=== PATIENT | female | born 1940 | race Caucasian/White ===

== ENCOUNTER 2022-05-14 03:14 | Emergency (ER) | payer MEDICARE ==
[2022-05-14] MEDS ORDERED: LIDOCAINE W/EPINEPHRINE 1% 20ML VIAL SC ONE (06:10)
[2022-05-14] MEDS ORDERED: BOOSTRIX/ADACEL VACCINE (DIPHTH/PERTUSS/ACELL/TETANUS) 0.5ML SYR IM ONE (07:05)
[2022-05-14] MEDS ORDERED: CEPH500C PO (07:12)
[2022-05-14 07:55] VITALS: BP 132/60
[2022-05-15] MEDS ORDERED: UNRESOLVED CLARIFICATION ENTRY XX SCH (00:01)
== END 2022-05-14 08:04 | disposition home or self-care (01) ==
LOC: EDBD 03:14 → M ED 03:14
DX: S81.011A Laceration without foreign body, right knee, initial encounter (principal); W01.0XXA Fall on same level from slipping, tripping and stumbling without subsequent striking against object, initial encounter; Y92.009 Unspecified place in unspecified non-institutional (private) residence as the place of occurrence of the external cause; Y93.9 Activity, unspecified; Y99.9 Unspecified external cause status